=== PATIENT | male | born 1980 | race African-American/Black ===

== ENCOUNTER 2019-06-01 21:17 | Emergency (ER) | payer SELFPAY ==
[~2019-06-01] VITALS: Ht 172.7 cm; Wt 81.6 kg
--- NOTE | 2019-06-01 21:45 | NUR ---
ED Nurse Note: pt presents to ED c/o a constant MARINELLI that was abrupt onset last PM. pt denies any trauma or injury to the area, states it may be related to R sided jaw and tooth px that he has been experiencing on and off for 2 months after a filling procedure. pt also states that he has had a cough since last PM that is nonproductive and some chills here and there. triage oral temp of 100.1 noted
[2019-06-01 22:00] VITALS: BP 123/72
[2019-06-02] MEDS ORDERED: ALBUTEROL SULF8.5 GM INH (00:09)
[2019-06-02] MEDS ORDERED: GUAIFENESIN DM118 M1 ORAL (00:09)
--- NOTE | 2019-06-02 00:27 | Diagnostic Imaging Report ---
EXAM: XR Chest, 1 View CLINICAL HISTORY: SOB TECHNIQUE: Frontal view of the chest. COMPARISON: No relevant prior studies available. FINDINGS: Lungs: Unremarkable. No consolidation. Pleural space: Unremarkable. No pneumothorax. Heart: Unremarkable. No cardiomegaly. Mediastinum: Unremarkable. Bones/joints: Unremarkable. IMPRESSION: 1. No acute cardiopulmonary disease. 2. If there is continued concern recommend PA and lateral chest radiographs.
[2019-06-02 00:55] VITALS: BP 123/72
--- NOTE | 2019-06-02 00:55 | NUR ---
ER DISCHARGE NOTE: Patient is cleared to be discharged per ERMD, pt is aox4, on room air, with stable vital signs. pt was given dc and prescription instructions, pt was able to verbalize understanding, pt id band removed without complications. pt is able to ambulate with steady gait. pt took all belongings.
--- NOTE | 2019-06-04 22:23 | Emergency Room Report ---
History of Present Illness General Chief Complaint: Headache Source: Patient Present Illness HPI Patient is a 39-year-old male who presented after increased headache as well as facial pain. Gradual onset of symptoms. Denies any neck stiffness. Reports having some dental pain. Nonproductive cough. Generalized body discomfort. Onset of symptoms was 1 day prior to arrival. Patient recently traveled from [place]. Denies any vomiting or diarrhea. Allergies: Coded Allergies: No Known Allergies (Unverified , 06/01/19) Patient History Past Medical History: see triage record Reviewed Nursing Documentation: PMH: Agreed; PSxH: Agreed Nursing Documentation-PMH Past Medical History: No Stated History Review of Systems All Other Systems: negative except mentioned in HPI Physical Exam Vital Signs Date Time Temp Pulse Resp B/P (MAP) Pulse Ox O2 Delivery O2 Flow Rate FiO2 06/01/19 21:38 100.0 107 16 123/72 (89) 97 Room Air General Appearance: well appearing, no apparent distress, alert, GCS 15 Head: normocephalic, atraumatic ENT: normal ENT inspection, hearing grossly normal, normal voice, uvula midline , other - No definite abscess Neck: full range of motion, supple Respiratory: lungs clear, normal breath sounds, no respiratory distress, speaking full sentences Cardiovascular #1: normal peripheral pulses, regular rate, rhythm, no edema Musculoskeletal: no calf tenderness Neurologic: alert, motor strength/tone normal, 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 Differential diagnosis includes is not limited to influenza, sinusitis, viral respiratory infection among others. Patient has a benign exam and does not appear to require any laboratory testing at this time. Influenza study was negative. Patient does not have any known contacts with Coronavirus however he was advised to self isolate due to current increased prevalence. Patient does not appear to have any respiratory distress. Chest x-ray showed no evidence of acute infiltrate. Patient is advised to return if any worsening condition or if any changes in status that are concerning. This report is dictated with [employer] consumer safety inspector software which may occasionally lead to discrepancies related to use of this software. Last Vital Signs Date Time Temp Pulse Resp B/P (MAP) Pulse Ox O2 Delivery O2 Flow Rate FiO2 3/8/20 00:55 100.1 101 18 123/72 97 Room Air Status: improved Disposition: HOME, SELF-CARE Condition: Stable Scripts Albuterol Sulfate* (ALBUTEROL SULFATE MDI*) 8.5 Gm Hfa.aer.ad 2 PUFF INH Q6H, #1 INH 0 Refills Prov: Kem Merino MD 06/02/19 Guaifenesin/Dextromethorphan* (Guaifenesin Dm Syrup*) 5 Ml Syrup 5 ML ORAL Q8H PRN for FOR COUGH, #118 ML 0 Refills Prov: Kem Merino MD 06/02/19 Patient Instructions: Viral Respiratory Infection Kem Merino MD Jun 04, 2019 22:23
== END 2019-06-02 00:55 | disposition home or self-care (01) ==
LOC: EMR 22:15
DX: J06.9 Acute upper respiratory infection, unspecified (principal); K08.89 Other specified disorders of teeth and supporting structures
CPT/HCPCS: 71045; 86710; 99283